=== PATIENT | female | born 1960 | race African-American/Black ===

== ENCOUNTER 2021-03-25 15:09 | Outpatient (CLI) | payer BC, SELFPAY ==
--- NOTE | ~2021-03-25 | XR_ITS ---
EXAMINATION: XR ankle LT min 3V, XR foot LT min 3V, XR foot RT min 3V, XR ankle RT min 3V DATE: 03/25/2021 16:16 INDICATION: Joint pain at the bilateral feet and ankles TECHNIQUE: 1. Anteroposterior, mortise, additional oblique and lateral view of the left ankle were obtained. 2. Dorsoplantar, two oblique and lateral views of the left foot were obtained. 3. Anteroposterior, mortise, additional oblique and lateral view of the right ankle were obtained. 4. Dorsoplantar, two oblique and lateral views of the right foot were obtained. COMPARISON: None. FINDINGS: Left foot and ankle: Alignment of the left foot and ankle is normal. Old healed avulsion fracture at the dorsolateral corn er of the anterior process of the calcaneus. No other fractures identified. Mild polyarticular osteoa rthritis the first metatarsophalangeal and several tarsal metatarsal and interphalangeal joints. No e rosions to suggest an inflammatory arthritis. No ankle joint effusion. Soft tissue swelling about the lateral malleolus but without appreciable subcutaneous stranding to suggest edema. Right foot and ankle: Alignment of the right foot and ankle is normal. No fracture. Similar mild polyarticular osteoarthrit is at the first metatarsophalangeal and several tarsal metatarsal and interphalangeal joints. No eros ions to suggest inflammatory arthritis. Small Achilles calcaneal spur and more prominent heterotopic ossification along the distal 3 cm of the Achilles tendon which suggests possibility of prior partial tear. No right ankle joint effusion. Similar soft tissue swelling about the lateral malleolus withou t suggestion of significant associated edema and this may be patient's baseline body habitus. IMPRESSION: 1. 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 2. Prominent heterotopic ossification along the distal right Achilles tendon which represents sequela of prior partial tear. Reviewed, dictated and finalized at location A. IMPRESSION: 1. Typical pattern of mild polyarticular osteoarthritis in the bilateral mid an d forefeet. 2. Prominent heterotopic ossification along the distal right Achilles tendon wh ich represents sequela of prior partial tear. IMPRESSION: 1. Typical pattern of mild polyarticular osteoarthritis in the bilateral mid an d forefeet. 2. Prominent heterotopic ossification along the distal right Achilles tendon wh ich represents sequela of prior partial tear. IMPRESSION: 1. Typical pattern of mild polyarticular osteoarthritis in the bilateral mid an d forefeet. 2. Prominent heterotopic ossification along the distal right Achilles tendon wh ich represents sequela of prior partial tear.
--- NOTE | ~2021-03-25 | US_ITS ---
EXAMINATION: US venous doppler [facility] DATE: 03/25/2021 16:09 INDICATION: Asymptomatic varicose veins of the bilateral lower extremity TECHNIQUE: Rios scale images without and with compression and Doppler images of the bilateral lower e xtremity veins were obtained. COMPARISON: None FINDINGS: The right common femoral vein, profunda femoral vein, femoral vein, popliteal vein, peroneal trunk, p osterior tibial veins, and greater saphenous vein are patent. The left common femoral vein, profunda femoral vein, femoral vein, popliteal vein, peroneal trunk, po sterior tibial veins, and greater saphenous vein are patent. IMPRESSION: 1. Patent bilateral lower extremity veins. No evidence of deep venous thrombosis. Reviewed, dictated and finalized at location A. IMPRESSION: 1. Patent bilateral lower extremity veins. No evidence of deep venous thrombosi s.
== END 2021-03-25 15:10 | disposition home or self-care (01) ==
PROVIDERS: PCP Registered Nurse; Visit Provider Registered Nurse
DX: I83.93 Asymptomatic varicose veins of bilateral lower extremities (principal); M19.071 Primary osteoarthritis, right ankle and foot; M19.072 Primary osteoarthritis, left ankle and foot
CPT/HCPCS: 73610; 73630; 93970

== ENCOUNTER 2022-01-22 13:22 | Outpatient (CLI) | payer BC, SELFPAY ==
--- NOTE | ~2022-01-22 | XR_ITS ---
EXAMINATION: XR lumbar spine 2-3V DATE: 01/22/2022 13:39 INDICATION: Low back pain TECHNIQUE: Anteroposterior and lateral views of the lumbar spine, and cone-down lateral view of the l umbosacral junction were obtained. COMPARISON: None. FINDINGS: 1.2 cm anterolisthesis L5 on S1 with associated bilateral facet osteoarthritis at this level. No evid ent pars intra-articular is defect. Sacral arches are intact. Normal bowel gas pattern. A few phlebol iths in the pelvis. Lung bases are clear with no pleural effusion. Vertebral body heights are normal. Mild disc height loss at L5-S1. IMPRESSION: 1. 1.2 cm anterolisthesis L5 on S1 with associated mild disc height loss and likely associated facet osteoarthritis but no definitive pars intra-articularis defects. Reviewed, dictated and finalized at location B. IMPRESSION: 1. 1.2 cm anterolisthesis L5 on S1 with associated mild disc height loss and li russell associated facet osteoarthritis but no definitive pars intra-articularis d efects.
== END 2022-01-22 13:23 | disposition home or self-care (01) ==
LOC: ANHIMG 13:24
PROVIDERS: PCP Registered Nurse; Visit Provider Registered Nurse
DX: M47.27 Other spondylosis with radiculopathy, lumbosacral region (principal)
CPT/HCPCS: 72100